=== PATIENT | male | born 2000 | race African-American/Black ===

== ENCOUNTER 2020-09-02 09:39 | Inpatient (IN) | payer MEDICAID ==
[~2020-09-02] VITALS: Ht 167.6 cm; Wt 58.5 kg
[2020-09-02 10:21] LABS: BASOPHILS % (AUTO) 0.8 % (0.0-2.0); EOSINOPHILS % (AUTO) 0.7 % (1.0-6.0); HEMOGLOBIN 14.5 g/dL (13.5-17.5); LYMPHOCYTES # (AUTO) 1.9 K/uL (1.0-4.8); LYMPHOCYTES % (AUTO) 22.8 % (22.0-44.0); MEAN CORPUSCULAR HEMOGLOBIN 32.9 pg (26.0-34.0); MEAN CORPUSCULAR HGB CONC 35.3 G/dL (31.0-37.0); MEAN CORPUSCULAR VOLUME 93 fL (80-100); MONOCYTES # (AUTO) 0.6 K/uL (0.1-1.0); MONOCYTES % (AUTO) 7.8 % (2.0-9.0); NEUTROPHILS # (AUTO) 5.6 K/uL (1.8-7.7); NEUTROPHILS % (AUTO) 67.9 % (40.0-70.0); PLATELET COUNT (AUTO) 271 K/uL (150-450); RED CELL DISTRIBUTION WIDTH 12.6 % (11.5-14.5)
[2020-09-02 10:28] LABS: ANION GAP 9 mmol/L (8-16); CALCIUM, TOTAL 8.9 mg/dL (8.8-10.5); CARBON DIOXIDE 23 mmol/L (22-29); CHLORIDE 108 mmol/L (98-107); CREATININE 0.93 mg/dL (0.60-1.30); GLOMERULAR FILTR. RATE CALC > 60 mL/min (>60); GLUCOSE,RANDOM 88 mg/dL (70-110); POTASSIUM 3.7 mmol/L (3.5-5.1); SODIUM SERUM 140 mmol/L (136-145); UREA NITROGEN, BLOOD 14 mg/dL (7-18)
[2020-09-02 10:34] LABS: ALANINE AMINOTRANSFERASE 31 U/L (12-78); ALBUMIN 3.8 g/dL (3.4-5.0); ALKALINE PHOSPHATASE 47 U/L (46-116); ASPARTATE AMINOTRANSFERASE 27 U/L (15-37); BILIRUBIN,TOTAL 0.8 mg/dL (0.1-1.0)
[2020-09-02 11:20] LABS: COVID AG,FIA SOURCE NASOPHARYNGEAL
[2020-09-02 11:48] LABS: AMPHET/METH SCREEN,URINE POSITIVE (NEGATIVE); BARBITURATE SCREEN, URINE NEGATIVE (NEGATIVE); BENZODIAZEPINES SCREEN,URINE NEGATIVE (NEGATIVE); CANNABINOID SCREEN,URINE POSITIVE (NEGATIVE); COCAINE SCREEN,URINE NEGATIVE (NEGATIVE); METHADONE SCREEN, URINE NEGATIVE (NEGATIVE); OPIATE SCREEN,URINE NEGATIVE (NEGATIVE); PHENCYCLIDINE SCREEN,URINE NEGATIVE (NEGATIVE)
[2020-09-02] MEDS ORDERED: TUBERCULIN, PURIFIED PROTEIN DERIVATIVE 5 TU/0.1 ML SYRINGE ID ONE (12:15)
[2020-09-02] MEDS ORDERED: PROMETHAZINE HCL 25 MG TABLET PO PRN (12:15)
[2020-09-02] MEDS ORDERED: MAGNESIUM HYDROXIDE SUSPENSION 30 ML UDCUP PO PRN (12:15)
[2020-09-02] MEDS ORDERED: ACETAMINOPHEN 325 MG TABLET PO PRN (12:15)
[2020-09-02] MEDS ORDERED: MAG HYDROX/AL HYDROX/SIMETH ES 30 ML SUSPENSION UDCUP PO PRN (12:15)
[2020-09-02] MEDS ORDERED: LOPERAMIDE HCL 2 MG CAPSULE PO PRN (12:15)
[2020-09-02] MEDS ORDERED: ZOLPIDEM TARTRATE 10 MG TABLET PO PRN (12:15)
[2020-09-02] MEDS ORDERED: OLANZapine 5 MG RAPDIS TABLET PO PRN (12:15)
[2020-09-02] MEDS ORDERED: GuaiFENesin/D-METHORPHAN [SUGAR-FREE] 200-20MG/10 ML SYRUP UDCUP PO PRN (12:15)
[2020-09-02] MEDS ORDERED: HydrOXYzine PAMOATE 50 MG CAPSULE PO PRN (12:15)
[2020-09-02] MEDS: THIAMINE 100 MG TABLET PO SCH (17:00)
[2020-09-02] MEDS ORDERED: DiphenhydrAMINE HCL 50 MG/ML VIAL IM ONE (17:30)
[2020-09-02] MEDS ORDERED: LORazepam 2 MG/ML VIAL IM ONE (17:30)
[2020-09-02] MEDS ORDERED: HALOPERIDOL LACTATE 5 MG/ML VIAL IM ONE (17:30)
[2020-09-02] MEDS ORDERED: DiphenhydrAMINE HCL 50 MG/ML VIAL ONE (17:31)
[2020-09-02] MEDS ORDERED: HALOPERIDOL LACTATE 5 MG/ML VIAL ONE (17:31)
[2020-09-02] MEDS ORDERED: LORazepam 2 MG/ML VIAL ONE (17:32)
[2020-09-02 18:15] VITALS: BP 94/52
[2020-09-02] MEDS ORDERED: OLANZapine 5 MG RAPDIS TABLET PO SCH (21:00)
[2020-09-03 04:37] VITALS: BP 108/57
[2020-09-03 08:19] VITALS: BP 101/62
[2020-09-03] MEDS: MULTIVITAMINS WITH MINERALS, THERAPEUTIC TABLET PO SCH (08:25)
[2020-09-03] MEDS: NALTREXONE HCL 50 MG TABLET PO SCH (08:25)
[2020-09-03] MEDS: OMEGA-3/DHA/EPA/FISH OIL 1,000 MG CAPSULE PO SCH (08:25)
[2020-09-03] MEDS: LORazepam 2 MG TABLET PO PRN ×2 (08:25→16:38)
[2020-09-03] MEDS: FLUoxetine HCL 20 MG CAPSULE PO SCH (08:25)
[2020-09-03] MEDS: THIAMINE 100 MG TABLET PO SCH ×2 (08:25→16:38)
[2020-09-03] MEDS: FOLIC ACID 1 MG TABLET PO SCH (08:25)
[2020-09-03 16:34] VITALS: BP 109/61
[2020-09-03] MEDS: OLANZapine 10 MG RAPDIS TABLET PO SCH (20:22)
[2020-09-04 00:52] VITALS: BP 112/65
[2020-09-04 08:04] VITALS: BP 111/67
[2020-09-04] MEDS: NALTREXONE HCL 50 MG TABLET PO SCH (08:07)
[2020-09-04] MEDS: FLUoxetine HCL 20 MG CAPSULE PO SCH (08:07)
[2020-09-04] MEDS: THIAMINE 100 MG TABLET PO SCH ×2 (08:07→16:31)
[2020-09-04] MEDS: MULTIVITAMINS WITH MINERALS, THERAPEUTIC TABLET PO SCH (08:07)
[2020-09-04] MEDS: OMEGA-3/DHA/EPA/FISH OIL 1,000 MG CAPSULE PO SCH (08:07)
[2020-09-04] MEDS: FOLIC ACID 1 MG TABLET PO SCH (08:08)
[2020-09-04 08:51] LABS: FREE T4 (FREE THYROXINE) 1.09 ng/dL (0.76-1.46); THYROID STIMULATING HORMONE 0.67 uIU/mL (0.36-3.74)
[2020-09-04 16:30] VITALS: BP 100/59
[2020-09-04] MEDS: LORazepam 2 MG TABLET PO PRN (16:31)
[2020-09-04 17:30] VITALS: BP 112/68
[2020-09-04] MEDS: OLANZapine 10 MG RAPDIS TABLET PO SCH (20:23)
[2020-09-05 05:24] VITALS: BP 126/76
[2020-09-05 08:05] VITALS: BP 121/63
[2020-09-05] MEDS: OMEGA-3/DHA/EPA/FISH OIL 1,000 MG CAPSULE PO SCH (09:23)
[2020-09-05] MEDS: FOLIC ACID 1 MG TABLET PO SCH (09:23)
[2020-09-05] MEDS: FLUoxetine HCL 20 MG CAPSULE PO SCH (09:23)
[2020-09-05] MEDS: NALTREXONE HCL 50 MG TABLET PO SCH (09:24)
[2020-09-05] MEDS: MULTIVITAMINS WITH MINERALS, THERAPEUTIC TABLET PO SCH (09:24)
[2020-09-05] MEDS: THIAMINE 100 MG TABLET PO SCH ×2 (09:24→16:23)
[2020-09-05 16:08] VITALS: BP 112/74
[2020-09-05] MEDS: OLANZapine 10 MG RAPDIS TABLET PO SCH (20:16)
[2020-09-05] MEDS: DIVALPROEX SODIUM 500 MG ER TABLET PO SCH (20:16)
[2020-09-06 05:14] VITALS: BP 120/64
[2020-09-06] MEDS: OMEGA-3/DHA/EPA/FISH OIL 1,000 MG CAPSULE PO SCH (08:20)
[2020-09-06] MEDS: NALTREXONE HCL 50 MG TABLET PO SCH (08:20)
[2020-09-06] MEDS: MULTIVITAMINS WITH MINERALS, THERAPEUTIC TABLET PO SCH (08:20)
[2020-09-06] MEDS: THIAMINE 100 MG TABLET PO SCH ×2 (08:20→16:34)
[2020-09-06] MEDS: FLUoxetine HCL 20 MG CAPSULE PO SCH (08:20)
[2020-09-06] MEDS: FOLIC ACID 1 MG TABLET PO SCH (08:20)
[2020-09-06 08:43] VITALS: BP 116/72
[2020-09-06 16:09] VITALS: BP 120/75
[2020-09-06] MEDS: DIVALPROEX SODIUM 500 MG ER TABLET PO SCH (20:14)
[2020-09-06] MEDS: OLANZapine 10 MG RAPDIS TABLET PO SCH (20:14)
[2020-09-07 06:28] VITALS: BP 118/71
[2020-09-07 08:12] VITALS: BP 144/77
[2020-09-07] MEDS: OMEGA-3/DHA/EPA/FISH OIL 1,000 MG CAPSULE PO SCH (08:53)
[2020-09-07] MEDS: FLUoxetine HCL 20 MG CAPSULE PO SCH (08:53)
[2020-09-07] MEDS: FOLIC ACID 1 MG TABLET PO SCH (08:53)
[2020-09-07] MEDS: MULTIVITAMINS WITH MINERALS, THERAPEUTIC TABLET PO SCH (08:53)
[2020-09-07] MEDS: NALTREXONE HCL 50 MG TABLET PO SCH (08:53)
[2020-09-07] MEDS: THIAMINE 100 MG TABLET PO SCH ×2 (08:53→16:30)
[2020-09-07 16:00] VITALS: BP 116/70
[2020-09-07] MEDS: LORazepam 2 MG TABLET PO PRN (16:30)
[2020-09-07] MEDS: DIVALPROEX SODIUM 500 MG ER TABLET PO SCH (20:07)
[2020-09-07] MEDS: OLANZapine 10 MG RAPDIS TABLET PO SCH (20:07)
[2020-09-08 06:13] VITALS: BP 136/88
[2020-09-08] MEDS: MULTIVITAMINS WITH MINERALS, THERAPEUTIC TABLET PO SCH (08:07)
[2020-09-08] MEDS: OMEGA-3/DHA/EPA/FISH OIL 1,000 MG CAPSULE PO SCH (08:07)
[2020-09-08] MEDS: NALTREXONE HCL 50 MG TABLET PO SCH (08:08)
[2020-09-08] MEDS: FOLIC ACID 1 MG TABLET PO SCH (08:08)
[2020-09-08] MEDS: FLUoxetine HCL 20 MG CAPSULE PO SCH (08:08)
[2020-09-08] MEDS: THIAMINE 100 MG TABLET PO SCH ×2 (08:08→16:09)
[2020-09-08] MEDS: LORazepam 2 MG TABLET PO PRN ×3 (08:09→20:09)
[2020-09-08] MEDS: NICOTINE 21 MG/24 HOUR PATCH TD SCH (08:09)
[2020-09-08 08:13] VITALS: BP 136/75
[2020-09-08 16:00] VITALS: BP 120/76
[2020-09-08] MEDS: OLANZapine 10 MG RAPDIS TABLET PO SCH (20:06)
[2020-09-08] MEDS: DIVALPROEX SODIUM 500 MG ER TABLET PO SCH (20:06)
[2020-09-09 05:11] VITALS: BP 126/80
[2020-09-09 08:04] VITALS: BP 121/74
[2020-09-09] MEDS: NALTREXONE HCL 50 MG TABLET PO SCH (08:42)
[2020-09-09] MEDS: FOLIC ACID 1 MG TABLET PO SCH (08:42)
[2020-09-09] MEDS: OMEGA-3/DHA/EPA/FISH OIL 1,000 MG CAPSULE PO SCH (08:42)
[2020-09-09] MEDS: LORazepam 2 MG TABLET PO PRN (08:42)
[2020-09-09] MEDS: THIAMINE 100 MG TABLET PO SCH (08:42)
[2020-09-09] MEDS: FLUoxetine HCL 20 MG CAPSULE PO SCH (08:42)
[2020-09-09] MEDS: MULTIVITAMINS WITH MINERALS, THERAPEUTIC TABLET PO SCH (08:42)
[2020-09-09] MEDS: NICOTINE 21 MG/24 HOUR PATCH TD SCH (08:43)
[2020-09-09] MEDS ORDERED: NALT50TA PO (11:04)
[2020-09-09] MEDS ORDERED: OMEG-135 PO (11:04)
[2020-09-09] MEDS ORDERED: DIVA-80 PO (11:04)
[2020-09-09] MEDS ORDERED: OLAN10TA22 PO (11:04)
[2020-09-09] MEDS ORDERED: FLUO-191 PO (11:04)
== END 2020-09-09 13:20 | disposition home or self-care (01) | DRG 750 ==
LOC: EMS 09:43 → B2S 12:13 → B3A 17:36
PROVIDERS: ADMIT Psychiatry & Neurology Psychiatry; ATTEND Psychiatry & Neurology Psychiatry
DX: F20.9 Schizophrenia, unspecified (principal); R45.851 Suicidal ideations; F12.10 Cannabis abuse, uncomplicated; F32.9 Major depressive disorder, single episode, unspecified; J44.9 Chronic obstructive pulmonary disease, unspecified; F17.210 Nicotine dependence, cigarettes, uncomplicated; I95.9 Hypotension, unspecified; Z20.828 Contact with and (suspected) exposure to other viral communicable diseases; Z55.9 Problems related to education and literacy, unspecified; Z59.0 Homelessness; Z65.3 Problems related to other legal circumstances; Z79.899 Other long term (current) drug therapy; Z91.19 Patient's noncompliance with other medical treatment and regimen; Z91.5 Personal history of self-harm
CPT/HCPCS: 84439; 84443; 86592; 87426; G0480; J1200; J1630; J2060